=== PATIENT | male | born 1960 | race Caucasian/White ===

== ENCOUNTER 2025-03-28 10:51 | Emergency (ER) | payer OTHER, SELFPAY ==
[2025-03-28 10:57] VITALS: BP 135/66
--- NOTE | 2025-03-28 11:39 | ED.GENMED ---
History of Present Illness
General
Chief Complaint: Abdominal Pain
Source: patient
Exam Limitations: none
Time Seen by Provider: 03/28/25 11:21
History of Present Illness
History of Present Illness:
64yoM with a history of obesity, anxiety, and gout presenting with his significant other for evaluation of abdominal pain. Patient reports pain throughout his lower abdomen for the past 5 days. Pain is dull and intermittently sharp. He also is
feeling constipated. He is able to have bowel movements but only passing a small amount of stool at a time. He was seen by his PCP 2 days ago for his symptoms. Labs and a urinalysis were obtained. White count was mildly elevated. PCP tried to
order an outpatient CT scan but there were no available appointments so he was sent to the ED. Pain seems improved from yesterday and now feels like a residual soreness. He denies any fevers, nausea, vomiting, dysuria, testicular pain, testicular
swelling.
Past History
Past History
ED Past Medical History: Hypercholesterolemia
Social History
Living: with family
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
Phy Exam
General Physical Exam
General Presentation: well appearing and no apparent distress
General Skin: warm and dry
General Habitus: normal
General Mental: alert
ENT Exam
ENT Exam: normocephalic
Pulmonary Exam
Pulmonary Exam: no respiratory distress
Gastrointestinal Exam
Gastrointestinal Exam: normal bowel sounds, soft, non distended, tender and other (+Tenderness to periumbilical and RLQ regions. Abdomen obese, soft. No rebound or guarding. Normoactive bowel sounds.)
Neurological Exam
Neurological Exam: alert and speech normal
Janice Coma Scale
Eye Opening: Spontaneous
Verbal Response: Oriented
Motor Response: Obeys Commands
GCS Total Score: 15
Skin Exam
Skin Exam: normal color and warm/dry
Psychiatric Exam
Psychiatric Exam: normal mood/affect
Course
Orders/Labs/Results
Orders:
Orders
03/28/25 11:38
0.9% Sodium Chloride 1000 ml [Nss] 1,000 ml IV BOLUS
03/28/25 11:39
CT Abd/pelvis W Iv Cont Urgent
Comment:
Reason For Exam: lower abd pain, constipation
03/28/25 11:56
Complete Blood Count/With Diff Urgent
Comprehensive Metabolic Panel Urgent
Lipase Urgent
Urinalysis Urgent
Date Specimen was Collected: 03/28/25
Time Specimen was Collected: 11:53
Urine Microscopic Urgent
Date Specimen was Collected: 03/28/25
Time Specimen was Collected: 11:53
03/28/25 11:59
HYDROmorphone [Dilaudid] 0.5 mg IV NOW STA
03/28/25 13:58
Lorazepam [Ativan] 1 mg IV NOW STA
Abnormal Lab Results
03/28/25
11:56
MCHC 32.9 L g/dL
(33.0-37.0)
Absolute Monos (auto) 0.8 H 10^3/uL
(0.1-0.6)
Lymphocytes % 20.3 L %
(20.5-51.1)
Monocytes % 10.3 H %
(1.7-9.3)
Urine Urobilinogen 2+ A
(Neg - 1+)
Urine RBC 3-6 A /HPF
(0-2)
Urine WBC 6-10 A /HPF
(0-5)
Urine Bacteria Few A
(Negative)
Urine Albumin 1+ A
(Neg - Trace)
03/28/25 11:56
03/28/25 11:56
Vital Signs
Initial and Last Documented VS:
Initial Vital Signs
Temp Pulse Resp BP Pulse Ox
97.6 F 67 20 135/66 98
11/22/25 10:57 03/28/25 10:57 03/28/25 10:57 03/28/25 10:57 03/28/25 10:57
Last Documented Vital Signs
Temp Pulse Resp BP Pulse Ox
97.6 F 82 18 111/69 100
03/28/25 10:57 03/28/25 15:51 03/28/25 15:51 03/28/25 15:51 03/28/25 15:51
MDM/Problems Addressed
Differential Diagnosis Includes:
64yoM here with lower abd pain x 5 days. Associated with constipation. Sent by PCP for CT scan. Feeling better today. VSS. Patient well appearing in no distress. No signs of peritonitis on abdominal exam. Differential diagnosis includes but is not
limited to: appendicitis, diverticulitis, colitis, constipation
Initial ED plan: Check abdominal labs, UA, and CT abdomen.
*Pulse Oximetry
SaO2: 98
Oxygen Mode of Delivery: Room air
Patient hypoxic: no
*Critical Care Note
Total Time (30-74mins, 75-104mins- exclusive of procedures): Not Applicable
Update Note
Update Note:
Labs unremarkable including normal white count, renal function, LFTs. No signs of infection on urinalysis. CT shows mild acute diverticulitis without perforation or abscess. Pulmonary nodules noted incidentally. Patient informed of this finding
and copy of radiology report given. No indication for hospitalization. He was started on a course of Augmentin and advised to eat a clear liquid diet. Advised follow-up with PCP and ED return precautions reviewed. He is in agreement with plan
and was discharged in stable condition.
ED Attending Note
-
Portions of this chart may have been created with voice recognition software.� Occasional wrong word or��sound alike� substitutions may have occurred due to the inherent limitations of voice recognition software.
Discharge Plan
Departure
Patient Disposition: Home (Routine Discharge)
Date of Disposition: 03/28/25
Time of Disposition: 16:43
Patient with high blood pressure during this ER visit?: No
Discharge Problem:
Acute diverticulitis, Incidental pulmonary nodule
Instructions: Diverticulitis (DC), Clear Liquid Diet
Prescriptions:
New
amoxicillin-pot clavulanate 875-125 mg tablet
1 tab PO BID Qty: 20 0RF
Referrals:
Verónica Poole MD [Family Provider]
Activity Restrictions/Additional Instructions:
Take antibiotics as prescribed. Eat a clear liquid diet until symptoms improve.
Please follow-up with your family doctor on Sunday. You should discuss the incidental findings on your imaging including the lung nodules.
Return to the ER with any new or worsening symptoms including severe pain or fevers.
Interventions
Interventions:
*Risk Screen - Suicide Last Done: 03/28/25 12:01
*General Assessment Last Done: 03/28/25 10:57
*Neglect/Abuse Screening Last Done: 03/28/25 12:01
*ED- Fall Risk Assessment Last Done: 03/28/25 12:01
*ED COVID-19 Vaccine History Last Done: 03/28/25 15:14
*ED Influenza Vaccine History Last Done: 03/28/25 15:14
*Nursing Disposition Last Done: 03/28/25 17:06
IW-Uwequd-Tdyxapbtdr Assessment Last Done: 03/28/25 12:01
Discharge Date and Time
Discharge Date/Time: 03/28/25 17:06
Print Language: URDU
[2025-03-28] MEDS: NSS 1000 IV (12:00)
[2025-03-28 12:03] LABS: Hematocrit 42.6 % (39.0-52.0); Hemoglobin 14.0 g/dL (13.0-18.0); Mean Corp Hgb Conc. 32.9 g/dL (33.0-37.0); Mean Corpuscular Volume 86.6 fL (80.0-94.0); Nucleated Red Blood Cells % 0 % (-); Platelet Count 314 10^3/uL (130-400); Red Cell Dist. Width 13.2 % (11.5-14.5)
[2025-03-28 12:09] LABS: Urine Character Clear (Clear)
[2025-03-28 12:14] LABS: ALT (SGPT) 21 U/L (0-50); AST (SGOT) 18 U/L (17-59); Albumin 4.0 g/dl (3.5-5.0); Alkaline Phosphatase 67 U/L (38-126); Blood Urea Nitrogen 15 mg/dl (9-20); Calcium 9.3 mg/dl (8.4-10.2); Carbon Dioxide 29 mmol/L (22-30); Chloride 104 mmol/L (98-107); Glucose 96 mg/dl (70-99); Lipase 56 U/L (23-300); Potassium 4.5 mmol/L (3.5-5.1); Sodium 136 mmol/L (135-145); Total Protein 7.1 g/dl (6.3-8.2); eGFR > 60.00
[2025-03-28 12:31] LABS: Urine Squamous Cell >30 /LPF (Few)
[2025-03-28] MEDS: DILAUDID 0.5 MG IV (13:00)
[2025-03-28] MEDS: ATIVAN 1 MG IV (14:06)
[2025-03-28 15:51] VITALS: BP 111/69
== END 2025-03-28 17:06 | disposition home or self-care (01) ==
LOC: EMR 10:51
PROVIDERS: Physician Assistant; EMERGENCY PHYSICIAN Emergency Medicine; FAMILY PHYSICIAN Family Medicine
DX: K57.32 Diverticulitis of large intestine without perforation or abscess without bleeding (principal); R91.8 Other nonspecific abnormal finding of lung field; E78.00 Pure hypercholesterolemia, unspecified; E66.9 Obesity, unspecified; Z68.30 Body mass index [BMI] 30.0-30.9, adult; F41.9 Anxiety disorder, unspecified; M10.9 Gout, unspecified
CPT/HCPCS: 99284; 96374; 96375; 96361; 74177; 80053; 81003; 81015; 83690; 85025; Q9967